=== PATIENT | male | born 1940 | race Caucasian/White ===

== ENCOUNTER 2017-11-19 16:12 | Emergency (ER) | payer MEDICARE, BC, MEDICAID ==
[~2017-11-19] VITALS: Ht 185.4 cm; Wt 136.1 kg
[2017-11-19] MEDS ORDERED: PERCOCET 5-3251 EACH PO (17:23)
[2017-11-19] MEDS ORDERED: METFORMIN HCL1000 MG PO (17:25)
[2017-11-19] MEDS ORDERED: EFFEXOR XR150 MG PO (17:27)
[2017-11-19] MEDS ORDERED: TRAZODONE HCL50 MG (17:27)
[2017-11-19] MEDS ORDERED: ACETAMINOPHEN-1 EACH PO (17:28)
[2017-11-19] MEDS ORDERED: MOBIC7.5 MG PO (17:33)
[2017-11-19] MEDS ORDERED: ALLERGY MEDICAT25 MG PO (17:35)
[2017-11-19] MEDS ORDERED: HUMULIN R100 UNIT/1 INJ (17:37)
[2017-11-19] MEDS ORDERED: CYCLOBENZAPRINE10 MG PO (21:03)
--- NOTE | 2017-11-20 07:20 | NUR ---
I WAS REQUESTED BY BEV SUAREZ TO COME AND VISIT PT. HE IS FROM OUT [place] TOWN, AND JUST HAVING A BAD DAY. PT WAS ALERT, AND SEEMED PLEASED I CAME. HE SHARED WITH ME THAT HE IS FROM [facility] AND THAT HE WAS UP HERE REMEMBERING THE PASSING OF HIS . THE LOSS IS STILL VERY DIFFICULT FOR HIM. SHE IS BURIED IN [place], AND THEY LIVED TOGETHER IN [facility]. HE NEEDED TO SHARE HOW THEY MET AND RELATED SOME OF HIS LIFE STORY. HE ALLOWED ME TO PRAY FOR HIM, AND WAS WILLING TO FOLLOW OUR SUGGESTION OF A CARE RIDE TO [facility] AND SPEND THE NIGHT BEFORE CONTINUING ON. HE THANKED ME FOR THE VISIT, WILL FOLLOW NEEDED
== END 2017-11-19 23:04 | disposition home or self-care (01) ==
LOC: ED 16:12
DX: M25.551 Pain in right hip (principal); M47.816 Spondylosis without myelopathy or radiculopathy, lumbar region; M51.36 Other intervertebral disc degeneration, lumbar region; E11.9 Type 2 diabetes mellitus without complications; I10 Essential (primary) hypertension; F17.200 Nicotine dependence, unspecified, uncomplicated; Z79.899 Other long term (current) drug therapy; Z79.4 Long term (current) use of insulin
CPT/HCPCS: 72100; 72131; 73502; 73700; 96372; 96374; 96375; 96376; 99284; J1170; J1885; J2060; J2270; J2405; J2930